=== PATIENT | female | born 1995 | race Caucasian/White ===

== ENCOUNTER 2021-03-01 16:39 | Emergency (ER) | payer OTHER ==
[~2021-03-01] VITALS: Ht 162.6 cm; Wt 57.2 kg
[2021-03-01 16:50] VITALS: BP 142/72
[2021-03-01 17:58] LABS: BASOPHILS % (AUTO) 0.4 % (0.0-2.0); EOSINOPHILS # (AUTO) 0.1 K/uL (0-0.4); HEMATOCRIT 38.4 % (36-48); HEMOGLOBIN 13.1 g/dL (12.0-16.0); LYMPHOCYTES # (AUTO) 2.7 K/uL (2.5-16.5); LYMPHOCYTES % (AUTO) 44.6 % (20.5-51.1); MEAN CORPUSCULAR HEMOGLOBIN 30 pg (27-31); MEAN CORPUSCULAR HGB CONC 34 g/dL (33-37); MONOCYTES # (AUTO) 0.3 K/uL (0.8-1.0); MONOCYTES % (AUTO) 5.6 % (1.7-9.3); NEUTROPHILS % (AUTO) 48.4 % (42.2-75.2); PLATELET COUNT (AUTO) 373 K/uL (140-450); RED BLOOD CELL COUNT(AUTO) 4.36 MIL/uL (4.20-5.40); WHITE BLOOD COUNT (AUTO) 6.1 K/uL (4.8-10.8)
--- NOTE | 2021-03-01 18:13 | NUR ---
DR. SUN EVALUATING PATIENT AT BEDSIDE.
[2021-03-01 18:27] LABS: ALBUMIN 4.1 g/dL (3.4-5.0); ANION GAP 15.7 (8-16); CARBON DIOXIDE 25.1 mmol/L (21-32); CREATININE 0.7 mg/dL (0.6-1.3); POTASSIUM 3.8 mmol/L (3.5-5.1); TOTAL BILIRUBIN 0.5 mg/dL (0.0-1.0)
--- NOTE | 2021-03-01 18:30 | NUR ---
25 y/o F BIB father c/o chest pain x 2 weeks. Patient A&Ox4, ambulatory, reports intermittent chest pain that began two weeks ago. Pt reports 7/10, sharp/intermittent, non-radiating sternal chest pain that worsens by moving her shoulders forward or getting up from lying position. Pt also reports SOB x 1 day. Denies fever, chills, nausea, vomiting, diarrhea, abdominal pain, recent stressors, cough. No meds prior to arrival. Pt on dental internship showing VSS; RR even/unlabored. Bed locked in lowest position, side rails x 1, call light in reach. PMH/Sx/Meds: Denies NKDA
--- NOTE | 2021-03-01 18:36 | NUR ---
Pt transported to [facility] by
--- NOTE | 2021-03-01 18:43 | NUR ---
PATIENT ESCORTED BACK TO ROOM VIA WHEELCHAIR
--- NOTE | 2021-03-01 19:32 | NUR ---
Report and transfer of care endorsed to JAY Gunter
[2021-03-01] MEDS: IBUPROFEN 800 MG TAB PO ONE (19:55)
[2021-03-01] MEDS ORDERED: IBUP-2213 PO (19:56)
--- NOTE | 2021-03-01 20:00 | NUR ---
pt is awake and alert. states chest pain has subsided. all needs met at this time. bed locked in lowest position, side railsx 2.
[2021-03-01 20:20] VITALS: BP 110/70
== END 2021-03-01 20:20 | disposition home or self-care (01) ==
LOC: MED 16:39
DX: R07.2 Precordial pain (principal); R00.2 Palpitations; Z79.899 Other long term (current) drug therapy
CPT/HCPCS: 36415; 71046; 80053; 84484; 85025; 85379; 93005; 99285